=== PATIENT | female | born 1945 | race Asian ===

== ENCOUNTER 2023-01-10 14:23 | Emergency (ER) | payer OTHER ==
[~2023-01-10] VITALS: Ht 162.6 cm; Wt 99.8 kg
[2023-01-10 15:11] LABS: PLATELET COUNT 237 K/uL (152-353)
[2023-01-10 16:30] VITALS: BP 141/81; TEMP 97.9
[2023-01-10] MEDS ORDERED: LIPITOR20 MG PO (18:40)
[2023-01-10] MEDS ORDERED: CLON0.1D TD (18:42)
[2023-01-10] MEDS ORDERED: FURO20TA67 PO (18:43)
[2023-01-10] MEDS ORDERED: GLIM4TAB PO (18:45)
[2023-01-10] MEDS ORDERED: HUMALOG KW100 UNIT/M SC (18:46)
[2023-01-10] MEDS ORDERED: JANUVIA100 MG PO (18:47)
[2023-01-10] MEDS ORDERED: COZAAR25 MG PO (18:48)
[2023-01-10] MEDS ORDERED: OXYB5TAB56 PO (18:48)
[2023-01-10] MEDS ORDERED: RIVADIS TOP (18:51)
== END 2023-01-10 16:30 | disposition still patient (30) ==
LOC: ED 14:23
PROVIDERS: Emergency Medicine Emergency Medical Services
DX: F03.911 Unspecified dementia, unspecified severity, with agitation (principal); Z11.52 Encounter for screening for COVID-19; Z04.6 Encounter for general psychiatric examination, requested by authority
CPT/HCPCS: 80053; 81002; 85027; 87635; 93005; 96372; 99283; J2060; U0003